=== PATIENT | male | born 1980 | race African-American/Black ===

== ENCOUNTER → 2017-03-13 | Outpatient (CLI) | payer OTHER ==
[2017-03-13 10:02] LABS: microscopic required? NO
[2017-03-13 10:41] LABS: UA SPECIFIC GRAVITY <=1.005 (1.005-1.035); urine erythrocyte NEGATIVE (NEGATIVE)
[2017-03-13 10:43] LABS: BASOPHIL % 0.4 % (0-2); PLATELET COUNT 195 x10^3mcL (130-400); RED CELL DISTRIBUTION WIDTH 14.4 % (11.5-14.5)
[2017-03-13 11:01] LABS: ALBUMIN 4.1 g/dL (3.4-5.0); ALKALINE PHOSPHATASE 69 U/L (46-116); ALT/SGPT 42 U/L (16-63); AST/SGOT 26 U/L (15-37); BILIRUBIN TOTAL 0.4 mg/dL (0.20-1.00); CALCIUM 8.8 mg/dL (8.5-10.1); CARBON DIOXIDE 33.7 mmol/L (21-32); CHLORIDE SERUM 102 mmol/L (98-107); CHOLESTEROL 147 mg/dL (<200); CHOLESTEROL/HDL RATIO 4.2; GFR1 > 60 mL/min; GLUCOSE SERUM 104 mg/dL (74-106); HDL CHOLESTEROL 35 mg/dL (40-60); POTASSIUM SERUM 3.9 mmol/L (3.5-5.1); SODIUM SERUM 141 mmol/L (136-145); TOTAL PROTEIN, SERUM 7.7 g/dL (6.4-8.2); TRIGLYCERIDES 106 mg/dL (<150)
[2017-03-13 11:17] LABS: rbc morphology (normal/abnorm) ABNORMAL (NORMAL)
== END | disposition home or self-care (01) ==
LOC: LB 09:26
PROVIDERS: Family Medicine Geriatric Medicine
DX: Z13.228 Encounter for screening for other metabolic disorders (principal); Z13.21 Encounter for screening for nutritional disorder; Z11.3 Encounter for screening for infections with a predominantly sexual mode of transmission; R52 Pain, unspecified; Z13.1 Encounter for screening for diabetes mellitus; Z13.0 Encounter for screening for diseases of the blood and blood-forming organs and certain disorders involving the immune mechanism; Z13.220 Encounter for screening for lipoid disorders
CPT/HCPCS: 82652

== ENCOUNTER 2017-04-01 10:26 | Emergency (ER) | payer OTHER ==
[~2017-04-01] VITALS: Ht 190.5 cm; Wt 117.5 kg
[2017-04-01 10:39] VITALS: BP 126/76; Ht 190.5 cm; Wt 117.5 kg
== END 2017-04-01 11:43 | disposition home or self-care (01) ==
LOC: ED 10:26
DX: J03.90 Acute tonsillitis, unspecified (principal); J34.89 Other specified disorders of nose and nasal sinuses; J06.9 Acute upper respiratory infection, unspecified

== ENCOUNTER → 2017-08-19 | Day surgery (SDC) | payer OTHER ==
[~2017-08-19] VITALS: Ht 190.5 cm; Wt 109.8 kg
[2017-08-19 08:41] VITALS: BP 137/69
[2017-08-19 10:59] VITALS: BP 124/49
== END | disposition home or self-care (01) ==
LOC: GI 08:14 → OR 11:30
PROVIDERS: Internal Medicine Gastroenterology
PROC: 0DB68ZX Excision of Stomach, Via Natural or Artificial Opening Endoscopic, Diagnostic (ICD-10-PCS; principal; 2017-08-19 11:30)
DX: R10.13 Epigastric pain (principal); B96.81 Helicobacter pylori [H. pylori] as the cause of diseases classified elsewhere
CPT/HCPCS: 43235; J1200; J1610; J2250; J2310; J3010; J3490

== ENCOUNTER → 2017-08-19 | Outpatient (CLI) | payer OTHER ==
[2017-08-19 10:29] LABS: PLATELET COUNT 178 x10^3mcL (130-400)
[2017-08-19 10:35] LABS: BASOPHIL % 0.3 % (0-2)
[2017-08-19 10:38] LABS: RED CELL DISTRIBUTION WIDTH 15.1 % (11.5-14.5)
[2017-08-19 10:41] LABS: rbc morphology (normal/abnorm) ABNORMAL (NORMAL)
[2017-08-19 11:01] LABS: ERYTHROCYTE SED RATE 4 mm/hr (0-15)
[2017-08-19 11:09] LABS: ALBUMIN 3.7 g/dL (3.4-5.0); ALKALINE PHOSPHATASE 59 U/L (46-116); ALT/SGPT 69 U/L (16-63); AST/SGOT 62 U/L (15-37); BILIRUBIN TOTAL 0.54 mg/dL (0.20-1.00); C REACTIVE PROTEIN 0.6 mg/dL (<=0.9); CALCIUM 8.4 mg/dL (8.5-10.1); CARBON DIOXIDE 27.4 mmol/L (21-32); CHLORIDE SERUM 105 mmol/L (98-107); CREATININE SERUM 0.9 mg/dL (0.7-1.3); GFR1 > 60 mL/min; GLUCOSE SERUM 81 mg/dL (74-106); POTASSIUM SERUM 3.8 mmol/L (3.5-5.1); SODIUM SERUM 141 mmol/L (136-145); TOTAL PROTEIN, SERUM 7.1 g/dL (6.4-8.2); URIC ACID 6.5 mg/dL (3.5-7.2)
[2017-08-20 05:37] LABS: VITAMIN D 25-HYDROXY 36.3 ng/mL (30.0-100.0)
[2017-08-20 09:19] LABS: RHEUMATOID ARTHRITIS FACTOR <10.0 IU/mL (0.0-13.9)
[2017-08-20 16:08] LABS: SJOGRENS A/SSA AB <0.2 AI (0.0-0.9); SJOGRENS ANTIBODIES (SSB) <0.2 AI (0.0-0.9)
== END | disposition home or self-care (01) ==
LOC: RD 08:42
DX: M54.9 Dorsalgia, unspecified (principal); G89.29 Other chronic pain
CPT/HCPCS: 86200; 86235; 86431

== ENCOUNTER → 2017-09-04 | Outpatient (CLI) | payer OTHER | END | disposition home or self-care (01) | LOC: RD 14:27 | DX: M54.9 Dorsalgia, unspecified (principal); R53.83 Other fatigue | CPT/HCPCS: 72072; 84402; 84403 ==

== ENCOUNTER → 2018-04-08 | Outpatient (CLI) | payer OTHER | END | disposition home or self-care (01) | LOC: MI 07:23 | PROC: BQ37ZZZ Magnetic Resonance Imaging (MRI) of Right Knee (ICD-10-PCS; principal; 2018-04-08) | DX: M25.561 Pain in right knee (principal) ==

== ENCOUNTER → 2018-04-22 | Outpatient (CLI) | payer OTHER ==
[2018-04-22 16:42] LABS: APPEARANCE FLUID HAZY; SOURCE FLUID SYNOVIAL FLUID
[2018-04-22 16:43] LABS: COLOR FLUID RED YELLOW; RBC FLUID 10817 /cumm; WBC FLUID 80 /cumm
[2018-04-22 16:44] LABS: LYMPHOCYTE FLUID 78 %; MONOCYTE FLUID 22 %
[2018-04-24 20:02] LABS: CA 125 12.8 U/mL (Not Estab.); RAPID PLASMA REAGIN Non Reactive (Non Reactive)
== END | disposition home or self-care (01) ==
LOC: LB 14:54
PROVIDERS: Family Medicine Geriatric Medicine
DX: G89.4 Chronic pain syndrome (principal); M54.5 Low back pain; R53.82 Chronic fatigue, unspecified; G89.29 Other chronic pain; Z11.3 Encounter for screening for infections with a predominantly sexual mode of transmission; Z12.5 Encounter for screening for malignant neoplasm of prostate
CPT/HCPCS: 84153; 87491; 87591

== ENCOUNTER → 2018-06-10 | Outpatient (CLI) | payer OTHER | END | disposition home or self-care (01) | LOC: LB 10:00 | DX: R19.07 Generalized intra-abdominal and pelvic swelling, mass and lump (principal); K30 Functional dyspepsia ==

== ENCOUNTER → 2018-06-17 | Outpatient (CLI) | payer OTHER | END | disposition home or self-care (01) | LOC: LB 14:47 | DX: R19.07 Generalized intra-abdominal and pelvic swelling, mass and lump (principal); K30 Functional dyspepsia | CPT/HCPCS: 87338 ==

== ENCOUNTER → 2018-07-01 | Outpatient (CLI) | payer OTHER ==
[2018-07-01 12:59] LABS: microscopic required? NO
[2018-07-01 13:12] LABS: UA SPECIFIC GRAVITY 1.015 (1.005-1.035); urine erythrocyte NEGATIVE (NEGATIVE)
[2018-07-01 14:00] LABS: PLATELET COUNT 209 x10^3mcL (130-400); RED CELL DISTRIBUTION WIDTH 14.2 % (11.5-14.5)
== END | disposition home or self-care (01) ==
LOC: US 09:00
PROVIDERS: Internal Medicine Gastroenterology
DX: R53.82 Chronic fatigue, unspecified (principal); G89.29 Other chronic pain
CPT/HCPCS: Q0092

== ENCOUNTER → 2019-03-25 | Outpatient (CLI) | payer OTHER ==
[2019-03-25 10:33] LABS: BASOPHIL % 0.5 % (0-2); PLATELET COUNT 185 x10^3mcL (130-400)
[2019-03-25 10:58] LABS: RED CELL DISTRIBUTION WIDTH 14.8 % (11.5-14.5)
[2019-03-25 11:10] LABS: CARBON DIOXIDE 31.9 mmol/L (21-32); CHLORIDE SERUM 104 mmol/L (98-107); CREATININE SERUM 1.1 mg/dL (0.7-1.3); GFR1 > 60 mL/min; GLUCOSE SERUM 107 mg/dL (74-106); POTASSIUM SERUM 3.7 mmol/L (3.5-5.1); SODIUM SERUM 141 mmol/L (136-145); TOTAL PROTEIN, SERUM 7.8 g/dL (6.4-8.2)
[2019-03-25 11:11] LABS: ALKALINE PHOSPHATASE 81 U/L (46-116); ALT/SGPT 39 U/L (16-63); AST/SGOT 24 U/L (15-37); BILIRUBIN TOTAL 0.6 mg/dL (0.20-1.00); CHOLESTEROL 159 mg/dL (<200); CHOLESTEROL/HDL RATIO 4.3; FREE T4 1.07 ng/dL (0.76-1.46); HDL CHOLESTEROL 37 mg/dL (40-60); TRIGLYCERIDES 146 mg/dL (<150)
[2019-03-25 12:46] LABS: microscopic required? YES; urine erythrocyte TRACE (NEGATIVE)
[2019-03-26 06:10] LABS: RAPID PLASMA REAGIN Non Reactive (Non Reactive)
== END | disposition home or self-care (01) ==
LOC: LB 08:54
DX: E07.9 Disorder of thyroid, unspecified (principal); E55.9 Vitamin D deficiency, unspecified; Z11.3 Encounter for screening for infections with a predominantly sexual mode of transmission; Z13.228 Encounter for screening for other metabolic disorders; Z13.21 Encounter for screening for nutritional disorder; Z13.1 Encounter for screening for diabetes mellitus; Z13.0 Encounter for screening for diseases of the blood and blood-forming organs and certain disorders involving the immune mechanism; Z13.220 Encounter for screening for lipoid disorders
CPT/HCPCS: 82652; 84439; 87491; 87591

== ENCOUNTER → 2019-03-29 | Outpatient (CLI) | payer OTHER | END | disposition home or self-care (01) | LOC: MI 10:37 | PROC: BQ37YZZ Magnetic Resonance Imaging (MRI) of Right Knee using Other Contrast (ICD-10-PCS; principal; 2019-03-29) | DX: M25.561 Pain in right knee (principal) | CPT/HCPCS: A9577 ==

== ENCOUNTER → 2019-08-30 | Outpatient (CLI) | payer OTHER ==
[2019-08-31 04:06] LABS: RAPID PLASMA REAGIN Non Reactive (Non Reactive)
== END | disposition home or self-care (01) ==
LOC: LB 15:14
DX: R73.03 Prediabetes (principal); Z11.3 Encounter for screening for infections with a predominantly sexual mode of transmission; Z91.89 Other specified personal risk factors, not elsewhere classified; Z20.828 Contact with and (suspected) exposure to other viral communicable diseases
CPT/HCPCS: 87491; 87591